=== PATIENT | male | born 1985 | race African-American/Black ===

== ENCOUNTER 2017-01-15 03:24 | Emergency (ER) | payer SELFPAY ==
[~2017-01-15] VITALS: Ht 175.3 cm; Wt 63.5 kg
[2017-01-15 03:57] VITALS: BP 148/72
[2017-01-15] MEDS ORDERED: IV NORMAL SALINE 1000ML BAG 1,000 ML IV ONE (04:00)
[2017-01-15] MEDS ORDERED: IOHEXOL 300 MG/ML 75 ML VIAL IV ONE (04:15)
[2017-01-15] MEDS ORDERED: CONTRAST GIVEN MC PRN (04:15)
[2017-01-15] MEDS ORDERED: MAGN296S9 PO (04:24)
[2017-01-15] MEDS ORDERED: BISA10SU55 RC (04:24)
--- NOTE | 2017-01-15 04:24 | PHYS DOC ---
Past Medical History Past Medical History: Asthma Past Surgical History: No Surgical History Alcohol Use: None Drug Use: Marijuana Adult General Chief Complaint Chief Complaint: CONSTIPATION HPI HPI Patient is a 31 year old M who presents with constipation. Patient states he's been consulted for the past week with with increasing rectal pain. Patient states he's been trying [id number] laxatives with no success. Patient denies any fevers. Patient denies any nausea/vomiting. Patient has any abdominal pain but complains of rectal pain. Patient denies any dysuria. Patient has no other complaints. Review of Systems Review of Systems GEN: Denies fevers, chills, sweats HEENT: Denies blurred vision, sore throat CV: Denies chest pain RESP: Denies shortness of air, cough GI: Constipation NEURO: Denies confusion, dizziness MSK: Denies weakness, joint pain/swelling Current Medications Current Medications Current Medications Medications (Trade) Dose Ordered Sig/Ilsa Start Time Stop Time Status Last Admin Dose Admin Acetaminophen/ Hydrocodone Bitart (Lortab 5/325) 1 tab 1X ONCE 01/15/17 04:30 01/15/17 04:31 01/15/17 04:26 1 TAB Info (Do NOT chart on this entry -- for MONITORING) 1 each PRN DAILY PRN 01/15/17 04:15 01/15/17 04:21 DC Iohexol (Omnipaque 300 Mg/ml) 75 ml 1X ONCE 01/15/17 04:15 01/15/17 04:21 DC Sodium Chloride 1,000 ml @ 1,000 mls/hr 1X ONCE 01/15/17 04:00 01/15/17 04:21 DC Allergies Allergies Allergies Coded Allergies Type Severity Reaction Last Updated Verified No Known Drug Allergies 05/23/15 No Physical Exam Physical Exam GEN.: Mild distress. Alert and oriented. HEENT: Head is normocephalic, atraumatic NECK: Supple. LUNGS: CTAB. HEART: RRR, S1, S2 present. Peripheral pulses intact ABDOMEN: Soft, nontender. Positive bowel sounds. EXTREMITIES: Without any cyanosis. NEUROLOGIC: Normal speech, normal tone PSYCHIATRIC: Normal affect, normal mood. SKIN: No ulcerations EKG EKG [] Radiology/Procedures Radiology/Procedures [] Course & Med Decision Making Course & Med Decision Making Pertinent Labs and Imaging studies reviewed. (See chart for details) ED course: Patient was seen and examined in the emergency room abdominal workup was ordered along with a CT scan abdomen and pelvis 0420: I had a long discussion with the patient in regards to the workup and he is declined a workup understanding all risks including and disability and he would like a pain pill and a prescription for some suppositories and laxatives and left go home and try to resolve the constipation on his own. I explained him that the [place] can cause constipation they said just 1 pill would help with the pain and potentially allow him to have a bowel movement. Therefore the lab work and CT scan were canceled and patient be discharged home with magnesium citrate and Dulcolax suppositories and was given a [place] and emergency room. I recommended patient follow-up as PCP in one to 2 days and return if symptoms increase. Patient is stable for discharge. [] Dragon Disclaimer Dragon Disclaimer This electronic medical record was generated, in whole or in part, using a voice recognition dictation system. Departure Departure Impression: Primary Impression: Constipation Disposition: 01 HOME, SELF-CARE Condition: IMPROVED Referrals: NO PCP (PCP) Patient Instructions: Constipation, Adult Additional Instructions: Please follow-up with your family physician in the next one to 2 days and return if symptoms increase Scripts Magnesium Citrate (MAGNESIUM CITRATE) 296 Ml Solution 296 ML PO ONCE, #296 ML Prov: SOFIA SANDERS DO 01/15/17 Bisacodyl (DULCOLAX) 10 Mg Supp.rect 10 MG RC PRN DAILY Y for CONSTIPATION for 5 Days, #5 SUPP.RECT 0 Refills Prov: SOFIA SANDERS DO 01/15/17 SOFIA SANDERS DO Jan 15, 2017 04:24
[2017-01-15] MEDS ORDERED: HYDROcodone/APAP 5/325MG 1 TAB TABLET PO ONE (04:30)
== END 2017-01-15 04:30 | disposition home or self-care (01) ==
LOC: ER 03:24
DX: K59.00 Constipation, unspecified (principal); J45.909 Unspecified asthma, uncomplicated
CPT/HCPCS: 99282